=== PATIENT | male | born 1955 | race Caucasian/White ===

== ENCOUNTER 2020-10-29 18:18 | Emergency (ER) | payer MEDICARE, OTHER, SELFPAY ==
--- NOTE | 2020-10-29 18:34 | ED.GENADUL_ITS ---
Discharge Plan Disposition Patient Disposition: HOME Condition: Stable Discharge Details Clinical Impression: Bursitis of knee Primary Care Provider: Chantal,Local ED Provider: Eliane Balderas Home Meds and New Rx's Prescriptions: New cephalexin 500 mg capsule 500 mg PO QID 7 Days Qty: 28 RF: 0 Continued metformin 500 mg Tablet 500 mg PO DAILY RF: 0 Discharge Instructions Instructions: Cephalexin (By mouth), Knee Bursitis (ED) Additional Instructions: History and exam is most concerning for infected bursa. Please take the antibiotics as prescribed. Please continue with the Saeid wrap to apply some compression. Please encourage rest, ice, elevation. Tylenol and/or ibuprofen as needed for discomfort. Please follow-up with your primary care in 1 week for reevaluation. If you develop fever/chills, spreading of the redness, increased swelling or other new/worsening symptom please seek care urgently once again. Discharge Data Discharge Date/Time-TO BE ENTERED AT DEPARTURE: 10/29/20 20:05 Medical Decision Making Patient is a pleasant 65-year-old gentleman presenting today with chief complaint of right knee pain. States that he awoke with this pain this morning. Pain is persisted throughout the day. He had a large amount of swelling. He denies any fevers or chills. Denies any trauma. Patient was just wrapping up [place] the [place]. Denies any break in the skin. On exam, patient appears nontoxic. The area around the patella taped in supportive fashion. Notable swelling isolated over the patella with erythema and warmth. No joint effusion. No erythema of the patella. Skin otherwise normal. Exam is most consistent with prepatellar bursitis. I am concerned with potential infection Consulted with Dr. Jones regarding patients knee. Sent him pictures of the patient's with patient permission. Advised po Keflex, SAEID wrap, ice packs. He advised to discuss pros and cons of aspiration with the patient but did not feel that this was needed currently. FINDINGS: Bones/joints: There is mild marginal osteophyte formation involving the patellofemoral compartment. No acute fracture or dislocation is seen. Soft tissues: There is prominent prepatellar soft tissue swelling. IMPRESSION: 1. Mild patellofemoral marginal osteophyte formation. 2. Prepatellar soft tissue swelling. Discussed findings with the patient. Discussed recommendations Dr. Jones. We discussed the risk/benefits of aspiration. Patient prefers to hold off at this time and complete the watchful waiting approach. He will be begun on Keflex as was advised by Dr. Jones. Patient is returning home within the next week and will follow up with his primary care at that time. We did discuss worsening symptoms that should prompt immediate evaluation. Patient was given ice pack and Saeid wrap. Encourage rest, ice, elevation. All other questions or concerns were addressed and he is in agreement with this plan. HPI General Mode of arrival: ambulatory . Date/Time Provider Initiated Documentation: 10/29/20 18:34 . Limitations to Documentation: no limitations . Information obtained by: patient and RN notes reviewed . History of Present Illness 65 year old M presents to the emergency department with the chief complaint of right knee pain and swelling, described as severe, with intensity rated at 8. Quality is described as aching, and is localized to the left and lower extremity. Patient reports no radiation. Patient started experiencing this hour(s) (woke with the swelling and discomfort) and it has been constant. No relieving factors improve symptom(s), Movement worsens symptoms . Patient notes no other symptoms.. Patient did receive the following treatments prior to arrival, none Related Data Home Medications Medication Instructions Recorded Confirmed cephalexin 500 mg PO QID 7 Days #28 cap 10/29/20 metformin 500 mg PO DAILY 10/29/20 10/29/20 Previous Rx's Medication Instructions Recorded cephalexin 500 mg PO QID 7 Days #28 cap 10/29/20 Allergies Allergy/AdvReac Type Severity Reaction Status Date / Time bacitracin [From Cortisporin] Allergy Swelling/Ed Unverified 10/29/20 19:50 genevieve hydrocortisone Allergy Swelling/Ed Unverified 10/29/20 19:50 [From Cortisporin] genevieve neomycin [From Cortisporin] Allergy Swelling/Ed Unverified 10/29/20 19:50 genevieve polymyxin B Allergy Swelling/Ed Unverified 10/29/20 19:50 [From Cortisporin] genevieve colchicine AdvReac Other (See Unverified 10/29/20 19:43 Comment) Review of Systems Constitutional Constitutional: Reports as per HPI, Denies chills, Denies fever(s), Denies headache(s) and Denies weakness ENT Ears, Nose, Mouth, and Throat: Denies headache(s) Cardiovascular Cardiovascular: Reports as per HPI Respiratory Respiratory: Reports as per HPI and Denies cough Musculoskeletal Musculoskeletal: Reports as per HPI and Denies tingling Integumentary/Breasts Skin/Breast: Reports as per HPI, Reports erythema, Denies rash and Denies wounds Neurologic Neurologic: Reports as per HPI, Denies headache(s), Denies tingling, Denies paresthesias and Denies weakness [facility] Social History Smoking/Tobacco Use Status: Never Smoking risk assessment performed?: Yes Alcohol Intake: never Substance use type: does not use Do you feel safe at home: Yes Do you feel safe in your relationship?: Yes Exam Const General: cooperative, healthy appearing, comfortable, no acute distress, well developed and well groomed Nutritional Appearance: average body habitus and well nourished Orientation: alert and awake Resp Effort & Inspection: normal respiratory effort, able to speak in complete sentences and no respiratory distress Cardio Rate: regular rate Rhythm: regular rhythm Skin General skin exam: erythema (redness over right knee, warm to touch) Neuro General: patient alert and patient awake Cognition: normal cognition Speech: speech normal Gait: antalgic Motor: muscle tone normal throughout Sensory Exam: no sensory deficits noted Extrem Left lower extremity: normal capillary refill, hip/thigh Details: normal to inspection, knee Details: abnormal to inspection (notable swelling over patella, warm and erythematous), tenderness Location: of the patella, swelling Location: of the patella, knee ligament exam normal and warmth (limited to patella) and lower leg (senstaion normal, no swelling, pain or discolofration) Details: normal to inspection Psych Appearance: grossly normal and well kempt Mental Status: mental status grossly normal Speech and Movement: speech and movement normal
--- NOTE | 2020-10-29 18:45 | DI.RAD_ITS ---
Exam(s) XR KNEE RT 4V AP,LAT,KYLE,PAT EXAM: XR KNEE RT 4V AP,LAT,KYLE,PAT CLINICAL HISTORY: swelling, pain. TECHNIQUE: 2D digital imaging was performed. COMPARISON: No exams were available for comparison FINDINGS: BONES: No acute fracture is present. No bony destructive lesion is seen. There is an enthesophyte at the superior patella. JOINTS: The knee is normally aligned. No joint effusion is seen. Small spurs are seen at the posterio r patella. The joint spaces are otherwise well maintained. SOFT TISSUE: There is marked prepatellar soft tissue swelling. IMPRESSION: Marked prepatellar soft tissue swelling. DATA REPOSITORY: RADIATION DOSE DELIVERED:
[2020-10-29 19:10] VITALS: BP 154/95; PULSE 95; RESP 14; O2SAT 96
[2020-10-29] MEDS: Acetaminophen 500 MG TAB 1000 MG PO (19:20)
[2020-10-29] MEDS: Ibuprofen 600 MG TAB PO (19:20)
[2020-10-29] MEDS: Cephalexin 500 MG CAP PO ×2 (19:52→20:07)
--- NOTE | 2020-10-29 19:58 | DI.VRAD_ITS ---
PROCEDURE INFORMATION: Exam: XR Left Knee Exam date and time: 10/29/2020 7:30 PM Age: 65 years old Clinical indication: Knee; Left; Patient HX: Pain and swelling TECHNIQUE: Imaging protocol: XR Left knee. Views: 4 or more views. COMPARISON: No relevant prior studies available. FINDINGS: Bones/joints: There is mild marginal osteophyte formation involving the patellofemoral compartment. No acute fracture or dislocation is seen. Soft tissues: There is prominent prepatellar soft tissue swelling. IMPRESSION: 1. Mild patellofemoral marginal osteophyte formation. 2. Prepatellar soft tissue swelling. Dictated and Authenticated by: Eliud Forrester MD. Ordering:ASIYA Del Rio MD
--- NOTE | 2020-10-29 20:09 | NUR.NOTE ---
Nursing Note: Ice pack provided at discharge
== END 2020-10-29 20:05 | disposition home or self-care (01) ==
PROVIDERS: Emergency Provider Physician Assistant
DX: M71.561 Other bursitis, not elsewhere classified, right knee (principal)
CPT/HCPCS: 99283; 73564